=== PATIENT | female | born 1985 | race Caucasian/White ===

== ENCOUNTER 2025-05-26 12:48 | Emergency (ER) | payer OTHER, SELFPAY ==
[2025-05-26 12:50] VITALS: BP 130/88
[2025-05-26 13:28] LABS: Hematocrit 33.2 % (37.0-47.0); Hemoglobin 10.0 g/dL (12.0-16.0); Mean Corp Hgb Conc. 30.1 g/dL (33.0-37.0); Mean Corpuscular Volume 74.6 fL (81.0-99.0); Nucleated Red Blood Cells % 0 %; Platelet Count 339 10^3/uL (130-400); Red Cell Dist. Width 17.2 % (11.5-14.5)
[2025-05-26 13:41] LABS: HCG, Serum Qualitative Screen Negative
[2025-05-26 13:44] LABS: ALT (SGPT) 18 U/L (0-35); AST (SGOT) 26 U/L (14-36); Albumin 4.8 g/dl (3.5-5.0); Alkaline Phosphatase 86 U/L (38-126); Blood Urea Nitrogen 8 mg/dl (7-17); Calcium 9.8 mg/dl (8.4-10.2); Carbon Dioxide 26 mmol/L (22-30); Chloride 105 mmol/L (98-107); Glucose 104 mg/dl (70-99); Potassium 4.1 mmol/L (3.5-5.1); Sodium 135 mmol/L (135-145); Total Protein 8.0 g/dl (6.3-8.2); eGFR > 60.00
--- NOTE | 2025-05-26 13:55 | ED.GENMED ---
History of Present Illness
General
Chief Complaint: Breathing Problem
Time Seen by Provider: 05/26/25 13:55
History of Present Illness
History of Present Illness:
FOCUSED PAST MEDICAL HISTORY
- No significant past medical history, has had several pregnancies in the past
REVIEW OF OLD RECORDS
- Has had 5 C-sections most recently at [place] May 2023.
Note:
CHIEF COMPLAINT(S)
Shortness of breath and passing out for a few seconds.
HISTORY OF PRESENT ILLNESS
The patient is a 40-year-old female who presented to the emergency department with concerns of feeling despite negative tests. She reports experiencing shortness of breath and fainting, briefly losing consciousness yesterday. Her
menstrual periods have been irregular and heavy. The patients hemoglobin level was noted to be low at 10.0 g/dL. She expresses concern about potential ectopic , referencing a unique blood type and a past complication involving her
child with hypoplastic left heart syndrome. She also mentioned feeling sharp pains in the upper abdominal area and experiencing symptoms similar to a past . She denies any abdominal pain upon physical examination.
EXTERNAL RECORDS REVIEWED
The patients hemoglobin is noted to be 10.0 g/dL. Her electrocardiogram was normal, and her oxygen saturation was 100% at the time of evaluation.
SOCIAL DETERMINANTS AFFECTING HEALTH
The patient mentions concerns related to previous healthcare experiences and stresses due to her current health queries.
REVIEW OF SYSTEMS
- Cardiovascular: Shortness of breath.
- Neurological: Brief loss of consciousness.
- Gastrointestinal: Sharp pains in the upper abdomen, heavy menstrual periods.
- Reproductive: Symptoms suggestive of despite negative tests.
PHYSICAL EXAM
- General: Alert, no acute distress.
- Cardiovascular: Normal peripheral perfusion, No edema.
- Gastrointestinal: Abdomen nondistended, no tenderness upon examination. No pelvic tenderness.
- Neurological: Alert and oriented to person, place, time, and situation, No focal neurological deficit observed.
- Extremities: No calf asymmetry and no lower extremity edema
PLAN
- Ultrasound of the pelvis to assess for any abnormalities, including fibroids or ectopic .
- Chest X-ray to evaluate potential causes of shortness of breath.
- Advising the patient to maintain a full bladder prior to the ultrasound for optimal evaluation.
DIFFERENTIAL DIAGNOSIS
The Differential Diagnosis includes, in no particular order and is not limited to:
1. Anemia-related syncope
2. Ectopic
3. Menorrhagia with anemia
4. Pulmonary embolism
5. Early not yet detectable by standard testing
6. Cardiac arrhythmias
7. Hypotension
8. Hormonal imbalances
9. Fibroids leading to abnormal uterine bleeding
10. Psychogenic syncope
RADIOLOGY
- Chest x-ray obtained and is clear
- Pelvic ultrasound obtained which shows thickened endometrial stripe
EKG
- Sinus 79, nonspecific ST abnormality, no old to compare
LABS
- White count normal, hemoglobin 10.0, platelets normal, chemistries unremarkable, hCG negative
SUMMARY OF ENCOUNTER
The 40-year-old female patient presented to the emergency department with concerns of feeling despite negative HCG tests. She reported experiencing shortness of breath and briefly losing consciousness. Her menstrual periods are irregular
and heavy, and she is concerned about a potential ectopic . She also reported sharp upper abdominal pains. Her hemoglobin level is low at 10.0 g/dL. An ECG showed normal results, and her oxygen saturation was 100%. The patient was advised
to undergo further imaging to rule out ectopic or other abnormalities and ensure proper evaluation.
ASSESSMENT
The symptoms could be indicative of several conditions, including anemia-related syncope, ectopic , menorrhagia with anemia, or early undetectable . Other considerations include pulmonary embolism and hormonal imbalances.
PLAN
- Ultrasound of the pelvis was ordered to assess for any abnormalities, including ectopic or fibroids.
- A chest X-ray has been ordered to evaluate other potential causes for shortness of breath.
- The patient is advised to maintain a full bladder before the ultrasound for optimal imaging results.
INDEPENDENT REVIEW OF LABS AND INTERPRETATION OF TESTS
- My independent review of CBC indicates the hemoglobin level is 10.0 g/dL, confirming anemia.
- My independent review of HCG is negative, indicating no confirmed .
- My independent pelvic ultrasound interpretation shows a thickened endometrial stripe, which may suggest issues such as endometrial hyperplasia or early , although the latter is ruled out by HCG results.
PATIENT EDUCATION AND COUNSELING
The patient was counseled about the importance of following up on the ultrasound results and monitoring for any worsening of symptoms such as increased shortness of breath or further episodes of syncope.
MEDICAL DECISION MAKING
1. Number and Complexity of Problems Addressed: Chronic conditions affecting care, including anemia and heavy menstrual bleeding, are leading to potential syncope and shortness of breath. Differential diagnoses include anemia-related syncope,
ectopic , menorrhagia with anemia, potentially undetectable early , pulmonary embolism, hormonal imbalances, and others.
2. Data:
- Category 1: I reviewed laboratory tests, including hemoglobin and HCG levels along with imaging results from the pelvic ultrasound. Non-emergency department records reviewed include prior hemoglobin levels.
- Category 2: My independent interpretation of the pelvic ultrasound indicated a thickened endometrial stripe.
-Risk: Consideration included diagnostic testing such as ultrasounds and the potential risk of overlooking ectopic or other significant conditions. Discharge was determined to be appropriate based on stable vitals and consistent evaluation
findings. Consideration of Admission/Observation: Escalation of care including admission/observation was considered given the complexity and risk of the patients presenting complaint. However, ultimately I feel the patient is safe for outpatient
management with close follow-up. Reasoning: Work-up reassuring, does not reveal any acute life/organ threatening processes, patients symptoms well controlled upon reevaluation, reexamination is reassuring, vitals are stable, patient agreeable with
discharge, reliable for follow-up.
DIAGNOSIS
- Anemia (ICD-10: D64.9)
- Menorrhagia, unspecified (ICD-10: N92.6)
- Syncope and collapse (ICD-10: R55)
- evaluation concerns (ICD-10: Z32.02)
- PERC and Wells negative for PE. Vital signs not consistent with PE. She is eager to go home on reassessment.
Phy Exam
Physical Exam
Physical Exam:
See HPI
Scores
PE Wells Score
Symptoms of DVT: No
No alternative diagnosis better explains the illness: No
Tachycardia with pulse > 100: No
Immobilization (>=3 days) or surgery within previous 4 weeks: No
Prior history of DVT or pulmonary embolism: No
Presence of hemoptysis: No
Presence of malignancy: No
Pulmonary Embolism Risk Score: 0
Probability of PE: Pt is low risk
PERC Rule Criteria
Age <50 years: Yes
HR <100 bpm: Yes
Room air oxygen sat >94%: Yes
History of DVT or PE: No
Recent trauma or surgery: No
Hemoptysis: No
Exogenous estrogen: No
Clinical signs suggestive of DVT: No
: No
Considered low risk for PE: Yes
PERC Score: 0
PE can be excluded by PERC: Yes
Course
Orders/Labs/Results
Orders:
Orders
05/26/25 12:56
Electrocardiogram (*1) Urgent
Reason for Study: Shortness of Breath
EKG- Treatment ONCE
05/26/25 12:59
CR Chest - 2 Views Urgent
Comment:
Reason For Exam: SOB
05/26/25 13:01
Complete Blood Count/With Diff Urgent
Comprehensive Metabolic Panel Urgent
HCG, Serum Qualitative Screen Urgent
05/26/25 14:09
Pelvis (Non Obstetric) US [US Pelvis Only (non-obstetric)] Urgent
Comment:
Reason For Exam: some pain, abnormal periods, hcg neg
Abnormal Lab Results
05/26/25
13:01
Hgb 10.0 L g/dL
(12.0-16.0)
Hct 33.2 L %
(37.0-47.0)
MCV 74.6 L fL
(81.0-99.0)
MCH 22.5 L pg
(27.0-31.0)
MCHC 30.1 L g/dL
(33.0-37.0)
RDW 17.2 H %
(11.5-14.5)
Absolute Monos (auto) 0.7 H 10^3/uL
(0.1-0.6)
Monocytes % 9.7 H %
(1.7-9.3)
Glucose 104 H mg/dl
(70-99)
05/26/25 13:01
05/26/25 13:01
Vital Signs
Initial and Last Documented VS:
Initial Vital Signs
Temp Pulse Resp BP Pulse Ox
36.5 C 80 18 130/88 100
05/26/25 12:50 05/26/25 12:50 05/26/25 12:50 05/26/25 12:50 05/26/25 12:50
Last Documented Vital Signs
Temp Pulse Resp BP Pulse Ox
36.5 C 74 14 120/68 98
05/26/25 12:50 05/26/25 16:00 05/26/25 16:00 05/26/25 16:00 05/26/25 16:00
*Pulse Oximetry
SaO2: 100
Oxygen Mode of Delivery: Room air
Patient hypoxic: no
*Critical Care Note
Total Time (30-74mins, 75-104mins- exclusive of procedures): Not Applicable
ED Attending Note
-
Portions of this chart may have been created with voice recognition software.� Occasional wrong word or��sound alike� substitutions may have occurred due to the inherent limitations of voice recognition software.
Discharge Plan
Departure
Patient Disposition: Home (Routine Discharge)
Date of Disposition: 05/26/25
Time of Disposition: 16:29
Patient with high blood pressure during this ER visit?: Yes
Discharge Problem:
Shortness of breath, Anemia
Instructions: Shortness of Breath (Dyspnea) (DC), BLOOD PRESSURE
Prescriptions:
No Action
Vitamin 1 EACH tablet
1 tab PO DAILY
oxycodone-acetaminophen 5-325 mg Tablet
1 tab PO Q4HPRN PRN (Reason: moderate pain) Qty: 10 0RF
ibuprofen 600 mg Tablet
600 mg PO Q6HPRN PRN (Reason: cramps) Qty: 90 0RF
Referrals:
NONE,* [Family Provider, Internal Medicine]
Activity Restrictions/Additional Instructions:
Your breath sounds are clear and your chest x-ray shows no abnormality. Your hemoglobin is somewhat low at 10.0. I reviewed your old records, in May 2023 was 9.5. test is negative here by blood work, but ultrasound shows a
'thickened endometrial stripe' measuring 17 mm�follow-up with senior enlisted advisor for further evaluation.
Interventions
Interventions:
*Risk Screen - Suicide Last Done: 05/26/25 12:55
*General Assessment Last Done: 05/26/25 14:20
*Neglect/Abuse Screening Last Done: 05/26/25 12:55
*ED- Fall Risk Assessment Last Done: 05/26/25 14:20
*ED COVID-19 Vaccine History Last Done: 05/26/25 14:20
*ED Influenza Vaccine History Last Done: 05/26/25 14:20
ED- Cardiac Assessment Last Done: 05/26/25 14:20
ED- Pulmonary Assessment Last Done: 05/26/25 14:20
Discharge Date and Time
Print Language: ESTONIAN
[2025-05-26 14:20] VITALS: BP 124/86
[2025-05-26 15:32] VITALS: BP 116/89
[2025-05-26 16:00] VITALS: BP 120/68
== END 2025-05-26 16:49 | disposition home or self-care (01) ==
LOC: EMR 12:48
PROVIDERS: Emergency Medicine; EMERGENCY PHYSICIAN Emergency Medicine
DX: D64.9 Anemia, unspecified (principal); R06.02 Shortness of breath; N92.0 Excessive and frequent menstruation with regular cycle
CPT/HCPCS: 99285; 71046; 76856; 80053; 84703; 85025; 93005